=== PATIENT | female | born 1955 | race Caucasian/White ===

== ENCOUNTER 2016-12-22 10:34 | Observation (INO) | payer BC ==
--- NOTE | ~2016-12-22 | CN ---
Consultation Report [address] [place]. [address] NAME: PHONG MACE : 51 STATUS : DIS [place] PAT#: [id number] AGE: 61 ADM/REG DATE : 12/22/16 MR#: [id number] REPORT SERV DATE: 12/25/16 DICTATED BY: ENRIQUE CEE DATE: 12/22/16 REPORT STATUS : Draft TRANSCRIBED BY: MODL DATE: 12/22/16 MEDICAL CONSULTATION NOTE DATE OF CONSULTATION: 12/22/2016 ATTENDING PHYSICIAN: Dr. Everton Szymanski. CONSULTING PHYSICIAN: Dr. Cee. REASON FOR CONSULTATION: Chest wall pain. HISTORY OF PRESENT ILLNESS: This is a 61-year-old white female, who has advanced stage breast cancer with ulceration of the breast on the right side. She has failed multiple naturopathic treatments by Dr. Kaminski in [place] and Dr. Gagnon at [place]. 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 I was asked by Dr. Szymanski to see the patient. Please see accompanying handwritten consultation sheet. Examination shows large ulcerated right breast with a massive confluent either solid tumor in the right axilla or axillary lymph nodes. She has back pain and is under the influence of Dilaudid at this moment. After discussion with her and her , they are better able to handle this at home. Her lungs are clear and heart regular. LABORATORY: White count is 34,600, hemoglobin 10.3, hematocrit 30, and platelets were 319,000. Lactic acid level was 3.4. Her CMP, sodium 130, potassium 4.2, creatinine 0.72, BUN 8, and albumin 2.5. Chest x-ray showed PICC line in position, otherwise negative AP chest. ASSESSMENT: 1. Advanced stage breast cancer right chest. 2. Metastatic breast cancer to bone. 3. Ulcerated mass right breast possibly infected. PLAN: Family desires home with hospice care. [facility] has been engaged by family previously. We will give Dilaudid for pain now and allow hospice to continue with pain management. Consultation Report [id number] [place]. [address] NAME: PHONG MACE : [birth year] STATUS : DIS [place] PAT#: [id number] AGE: 61 ADM/REG DATE : 12/22/16 MR#: [id number] REPORT SERV DATE: 12/25/16 DICTATED BY: ENRIQUE CEE DATE: 12/22/16 REPORT STATUS : Draft TRANSCRIBED BY: VITO DATE: 12/22/16 DB/VITO Enrique Cee M.D. / [id number] CC: MD CARMEL Asencio M.D. Bradley Keel, DO [facility] J. Scott Sherrer, M.D.
--- NOTE | ~2016-12-22 | DS ---
Discharge Summary [facility] [address] [place]. [address] NAME: PHONG MACE : 51 STATUS : DIS [place] PAT#: [id number] AGE: 61 ADM/REG DATE : 12/22/16 MR#: [id number] REPORT SERV DATE: 12/24/16 DICTATED BY: JERONIMO SANTANA DATE: 12/23/16 REPORT STATUS : Draft TRANSCRIBED BY: VITO DATE: 12/23/16 ADMISSION DATE: 12/22/2016 DISCHARGE DATE: 12/23/2016 DISCHARGE DIAGNOSES: 1. Right-sided breast cancer pain. 2. Ulceration of the right breast. 3. Right-sided breast cancer. IMAGING: Chest x-ray, 12/22/2016. PICC line in good position. Otherwise, negative AP portable chest. LABORATORY DATA: WBCs 34.6, hemoglobin 10.3, hematocrit 30.4, and platelet count is 319. Sodium is 130, potassium is 4.2, chloride 93, CO2 is 28, lactate is 1.9, BUN is 8, creatinine 0.72, and glucose is 142. HOSPITAL COURSE: Please refer to history and physical dictated by Dr. Atilio Coelho on 12/22/2016 for complete admission details. This patient is a 61-year-old female, who presents with a diagnosis of right-sided breast cancer diagnosed approximately 4-1/2 years ago. She declined chemotherapy and radiation. Upon diagnosis, she did go the natural route and treatments. She was previously seen in [facility] in [place]. She recently spent 2-1/2 weeks undergoing natural treatments. The patient was initially admitted for pain control under evaluation. The patient and family members requested hospice. The patient met with [facility], has decided to go home with [facility] this a.m. At this time she states her pain is comfortable. She states no needs and no new complaint. DISCHARGE MEDICATIONS: Discharge medication will be per [facility]. CONDITION AT DISCHARGE: The patient at this time is stable. This discharge took less than 30 minutes. /VITO Jeronimo Santana NP / [id number] CC: Ruslan Danielle MD Discharge Summary [address] [address] NAME: PHONG MACE : 51 STATUS : DIS [place] PAT#: [id number] AGE: 61 ADM/REG DATE : 12/22/16 MR#: [id number] REPORT SERV DATE: 12/24/16 DICTATED BY: JERONIMO SANTANA DATE: 12/23/16 REPORT STATUS : Draft TRANSCRIBED BY: MODL DATE: 12/23/16 Otto Kaminski MD
--- NOTE | ~2016-12-22 | HP ---
History And Physical [id number] [facility] [place]. [address] NAME: PHONG MACE : 51 STATUS : ADM [place] PAT#: [id number] AGE: 61 ADM/REG DATE : 12/22/16 MR#: [id number] REPORT SERV DATE: 12/22/16 DICTATED BY: ENRIQUE CEE DATE: 12/22/16 REPORT STATUS : Draft TRANSCRIBED BY: VITO DATE: 12/22/16 DATE OF ADMISSION: 12/22/2016 REASON FOR ADMISSION: Pain control. HISTORY: This is a 61-year-old white female, who was diagnosed with breast cancer about four and a half years ago. She had offered chemotherapy and radiation and decided to go natural with treatments from the [facility] in [place]. She spent about two and a half weeks there getting IV vitamin C, vitamin K, DMSO and supplements, and hyperbaric treatments. They state at the [facility] at [facility] for Dr. Gagnon to provide the treatments. She has been having naturopathic, homeopathic, or alternative medicine treatments for the last four and a half years from the time she had evidence of breast cancer diagnosed. She did have a pathologic fracture of her left femur that was done in 09/[address] Jenkins. PAST MEDICAL HISTORY: She has had hay fever, history of breast cancer, and some anxiety in the past. PAST SURGICAL HISTORY: She had a hysterectomy in 1996. HOME MEDICATIONS: Include the following: Tylenol 500 mg p.o. q.4 hours, ibuprofen 200 mg q.4 hours p.r.n., nitrofurantoin 50 mg p.o. b.i.d., cyanocobalamin 1 sublingual daily, vitamin B17 one a day, multiple supplements one a day, testosterone implant, progesterone one dose at bedtime, vitamin C, vitamin D and K, cranberry tablets. ALLERGIES: INCLUDE SULFA, AMIDE ANESTHETICS. SOCIAL HISTORY: She is . Lives with her . They have lived in [place] and here locally. She attends [employer]. She takes no alcohol or cigarettes. Takes no illicit drugs. REVIEW OF SYSTEMS: She has had pain in her right chest around the side and the back on to the axilla. Has had increasing bulky disease. It appears that the treatment she had received recently and even under the care of Dr. Carmel Kaminski with high-dose vitamin C and ozone therapy to have not prevailed in recent attempted therapies. She had a PET scan in 05/2016 at the time she had a pathologic fracture of the left femur and had no other bony disease that was noted. She has had no headache, eye pain, double vision, or unilateral weakness. No melena, hematemesis, fits, seizures, convulsions, nausea, vomiting, or diarrhea. The remainder of the review of systems is negative. History And Physical [address] [address] NAME: PHONG MACE : 51 STATUS : ADM [place] PAT#: [id number] AGE: 61 ADM/REG DATE : 12/22/16 MR#: [id number] REPORT SERV DATE: 12/22/16 DICTATED BY: ENRIQUE CEE DATE: 12/22/16 REPORT STATUS : Draft TRANSCRIBED BY: VITO DATE: 12/22/16 PHYSICAL EXAMINATION: GENERAL: Young-appearing white female, in moderate distress. VITAL SIGNS: Blood pressure 114/55 with a heart rate 99, respiratory rate 16, oxygen saturation 99%. HEENT: EOMI. Sclerae are clear. Conjunctivae pink. NECK: No bruit, without any JVD. CHEST: Clear to A and P. HEART: Regular S1, S2 without murmur, gallop, or click. Chest wall has a large ulcerating breast that is contracted with very firm feel to it and radiating around into the right axilla, which is firm, limiting range of motion with marked adenopathy seen past the posterior axillary line. ABDOMEN: Soft, nontender. Bowel sounds positive. No HSM. EXTREMITIES: No edema. Distal pulses are intact at dorsalis pedis and posterior tibial. NEUROLOGIC: Grossly intact bilaterally. SKIN: A large exophytic ulcerating mass purple in appearance in the right anterior breast. LYMPHATICS: The adenopathy matted and contiguous in the right axilla. LABORATORY DATA: The white count was 34.6, hemoglobin 10.3, hematocrit 30.4, platelets were 319,000. The lactate level was 3.4. The comprehensive metabolic profile showed sodium 130, potassium 4.2, creatinine 0.72, BUN 8, albumin 2.5, globulin 4.2, alkaline phosphatase 230. Portable chest x-ray showed PICC line in good position and otherwise negative AP portable chest. ASSESSMENT: 1. Right-sided breast cancer pain. We consulted hospice and discussed this with [facility] in the emergency room. They were unable to get a subcutaneous LIFESTYLE COORDINATOR pump started today. The patient is having significant pain, required some pain medication for that. 2. Ulceration of the right breast. It does not appear to be totally infected. There is no surrounding redness. Slight amount of heat, mostly pain without fluctuance or drainage. PLAN: We are going to admit to the hospital for frequent intermittent dosing of pain medication. I am going to increase the ibuprofen to 400 mg p.o. b.i.d. given routinely. We will start Augmentin 875 p.o. b.i.d. because of the possibility of local infection in the tumor, though I do not expect to be able to eradicate this. She said she did feel somewhat better when she was treated for urinary tract infection symptoms with nitrofurantoin. The Dilaudid is helping. They had contacted [facility] prior to coming to the emergency room. It was going to be after 5 o'clock this afternoon before they could be seen, so Melba Pineda of [facility] saw the patient in the emergency room and is willing to make arrangement for transfer home tomorrow with a subcutaneous LIFESTYLE COORDINATOR port. If she does not get pain relief with present intermittent medication, we will plan a basal rate plus bolus at home. DB/MODL History And Physical [address] [address] NAME: PHONG MACE : 51 STATUS : ADM [place] PAT#: [id number] AGE: 61 ADM/REG DATE : 12/22/16 MR#: [id number] REPORT SERV DATE: 12/22/16 DICTATED BY: NERIQUE CEE DATE: 12/22/16 REPORT STATUS : Draft TRANSCRIBED BY: VITO DATE: 12/22/16 Enrique Cee M.D. / [id number] CC: MD CARMEL Asencio M.D. Maurice Rawlings Jr., M.D.
[~2016-12-22 10:34] MED LIST: BETA GLUCAN PO; C STATIN PO; C5 PO; CURCUMIN PO; D 5000 PO; MINERAL PO; OTC SUPPLEMENTS PO; PCET PO; RESVERATROL PO; VITAMIN D IM; [UNRECOGNIZED DRUG - OTHER] IV
[2016-12-22 10:39] LABS: BASOPHILS 0.1 %; EOSINOPHILS 0.1 %; EOSINOPHILS ABSOLUTE 0.02 10/3/uL (0.0-0.53); HEMATOCRIT 30.4 % (36.0-48.0); HEMOGLOBIN 10.3 g/dL (12.0-16.0); IMMATURE GRANULOCYTES 0.8 %; IMMATURE GRANULOCYTES ABSOLUTE 0.29 10/3/uL (0.0-0.11); LYMPHOCYTES 0.9 %; LYMPHOCYTES ABSOLUTE 0.32 10/3/uL (0.67-4.30); MEAN CORPUS HGB CONC 33.9 g/dL (32.0-36.0); MEAN CORPUSCULAR HEMOGLOB 31.7 pg (26.0-34.0); MEAN CORPUSCULAR VOLUME 93.5 fL (80-100); MEAN PLATELET VOLUME 8.9 fL (9.2-13.0); MONOCYTES 4.6 %; NEUTROPHILS 93.5 %; NEUTROPHILS ABSOLUTE 32.39 10/3/uL (2.02-8.40); RBC DISTRIBUTION WIDTH 13.3 % (12.0-16.0); RED CELL COUNT 3.25 10/6/uL (4.0-5.6)
[2016-12-22 10:42] LABS: ER CBC TAT 0 Hrs 09 Mins; PLATELET COUNT 319 10/3/uL (150-400); WHITE BLOOD CELLS 34.6 10/3/uL (4.5-10.5)
[2016-12-22 10:47] LABS: BASOPHILS ABSOLUTE 0.02 10/3/uL (0.0-0.16); MANUAL DIFF NO %
[2016-12-22 10:54] LABS: BUN (BLOOD UREA NITROGEN) 8 MG/DL (6-23); CALCIUM, SERUM 8.5 MG/DL (8.5-10.4); CHLORIDE, SERUM 93 MMOL/L (96-112); CO2 (CARBON DIOXIDE) 28 MMOL/L (24-34); CREATININE 0.72 MG/DL (0.55-1.02); GFR AFRICAN AMERICAN 103 ML/MIN (>=60); GFR NON AFRICAN AMERICAN 89 ML/MIN (>=60); GLUCOSE, SERUM 142 MG/DL (60-99); POTASSIUM, SERUM 4.2 MMOL/L (3.5-5.3); SGOT(AST) 14 U/L (5-40); SGPT(ALT) 19 U/L (5-65); TOTAL BILIRUBIN 0.8 MG/DL (0-1.2); TOTAL PROTEIN 6.7 G/DL (6.0-8.5)
[2016-12-22 10:55] LABS: A/G RATIO 0.6 (0.7-1.9); ALBUMIN 2.5 G/DL (3.5-5.0); ALKALINE PHOSPHATASE 130 U/L (45-117); GLOBULIN 4.2 G/DL (2.5-4.1); SODIUM, SERUM 130 MMOL/L (135-148)
[2016-12-22 10:56] LABS: LACTATE 3.4 MMOL/L (0.3-2.4)
[2016-12-22 11:04] LABS: BAND NEUTROPHILS 25 %; BASOPHILS 1 %; BASOPHILS ABSOLUTE (CALC) 0.35 10/3/uL (0.0-0.16); ER DIFF TAT 0 Hrs 31 Mins; LYMPHOCYTES 4 %; LYMPHOCYTES ABSOLUTE (CALC) 1.38 10/3/uL (0.67-4.30); MONOCYTES 4 %; MONOCYTES ABSOLUTE (CALC) 1.38 10/3/uL (0.21-1.20); NEUTROPHILS ABSOLUTE (CALC) 31.49 10/3/uL (2.02-8.40); PLATELET ESTIMATE ADQ (ADEQUATE); RBC MORPHOLOGY NORM (NORMAL); SEGMENTED NEUTROPHIL (0) 66 %; TOTAL NUCLEATED CELLS 100
[2016-12-22] MEDS ORDERED: CYANOCOBALAMIN SL (11:24)
[2016-12-22] MEDS ORDERED: VITAMIN B17 PO (11:25)
[2016-12-22] MEDS ORDERED: TESTOSTERONE IMPLANT SC (11:26)
[2016-12-22] MEDS ORDERED: MULTIPLE SUPPLEMENTS PO (11:26)
[2016-12-22] MEDS ORDERED: PROGESTERONE TOP (11:27)
[2016-12-22] MEDS ORDERED: [UNRECOGNIZED DRUG - REMARK] IV (11:28)
[2016-12-22] MEDS ORDERED: [UNRECOGNIZED DRUG - OTHER] PO (11:29)
[2016-12-22] MEDS ORDERED: CRANBERRY TAB PO (11:29)
[2016-12-22] MEDS ORDERED: VITAMIN D PO (11:29)
[2016-12-22] MEDS ORDERED: ADVIL PO (11:30)
[2016-12-22] MEDS ORDERED: ACET500CAP PO (11:32)
[2016-12-22] MEDS ORDERED: MACRO50B PO (11:51)
== END 2016-12-23 10:15 | disposition hospice, home (50) ==
LOC: ER 10:34 → 4EA 12:02
PROVIDERS: Hospitalist
DX: N61.1 Abscess of the breast and nipple (principal); C50.911 Malignant neoplasm of unspecified site of right female breast; F41.9 Anxiety disorder, unspecified; Z90.710 Acquired absence of both cervix and uterus; Z79.1 Long term (current) use of non-steroidal anti-inflammatories (NSAID); Z79.899 Other long term (current) drug therapy; Z88.2 Allergy status to sulfonamides; Z88.8 Allergy status to other drugs, medicaments and biological substances; Z88.4 Allergy status to anesthetic agent
CPT/HCPCS: 71010; 80053; 81001; 83605; 85025; 87040; 96372; 96374; 96375; 96376; 99285; A9270-GY; G0378; J1170; J2405; J3370